=== PATIENT | female | born 1990 | race Caucasian/White ===

== ENCOUNTER 2017-09-04 05:58 | Day surgery (SDC) | payer OTHER ==
[2017-09-04] MEDS ORDERED: ACETAMINOPHEN 1000 MG/100 ML IVPB (07:00)
[2017-09-04] MEDS ORDERED: CEFAZOLIN 1 GM INJ (07:00)
[2017-09-04] MEDS ORDERED: DEXAMETHASONE 4 MG/ML 1 ML INJ (07:00)
[2017-09-04] MEDS ORDERED: METOCLOPRAMIDE 10 MG INJ (07:00)
[2017-09-04] MEDS ORDERED: MIDAZOLAM 1 MG/ML 2 ML INJ (07:56)
[2017-09-04] MEDS ORDERED: FENTAnyl 50 MCG/ML VIAL ×2 (07:56→08:46)
[2017-09-04] MEDS ORDERED: PROPOFOL 20 ML (07:56)
[2017-09-04] MEDS ORDERED: ONDANSETRON 4 MG INJ (08:03)
[2017-09-04] MEDS ORDERED: LIDOCAINE 2% (SDV) 5 ML INJ (08:04)
[2017-09-04] MEDS ORDERED: SUCCINYLCHOLINE CHLORIDE 100 MG/5 ML SYG IV (08:04)
[2017-09-04] MEDS ORDERED: ROCURONIUM 50 MG INJ (08:04)
[2017-09-04] MEDS ORDERED: SUGAMMADEX SODIUM 200 MG/2 ML VIAL IV ×2 (08:05→08:57)
[2017-09-04] MEDS: BUPIVACAINE 0.5%/EPI (SDV) 30 ML INJ (08:58)
[2017-09-04] MEDS ORDERED: LACTATED RINGER'S 1,000 ML IV (09:12)
[2017-09-04] MEDS ORDERED: HYDROmorphONE 1 MG/5 ML IV SYRINGE IV (09:30)
[2017-09-04] MEDS ORDERED: ONDANSETRON 4 MG INJ IV ×2 (09:30)
[2017-09-04] MEDS ORDERED: IBUPROFEN 600 MG TAB PO (09:30)
[2017-09-04] MEDS ORDERED: FENTAnyl 50 MCG/ML VIAL IV ×2 (09:30)
[2017-09-04] MEDS ORDERED: DIPHENHYDRAMINE 50 MG INJ IV (09:30)
[2017-09-04] MEDS ORDERED: MEPERIDINE 25 MG INJ IV (09:30)
[2017-09-04] MEDS ORDERED: morphine 2 MG INJ IV (09:30)
[2017-09-04] MEDS ORDERED: ACETAMINOPHEN 325 MG TAB PO (09:30)
[2017-09-04] MEDS ORDERED: KETOROLAC 30 MG INJ IV (09:30)
[2017-09-04] MEDS: HYDROmorphONE 1 MG/5 ML IV SYRINGE IV ×2 (09:50→09:59)
[2017-09-04] MEDS: OXYCODONE/ACETAMINOPHEN (5/325) TAB PO (10:04)
== END 2017-09-04 11:15 | disposition home or self-care (01) ==
LOC: SDS 05:58
DX: Z30.2 Encounter for sterilization (principal)
CPT/HCPCS: 58670

== ENCOUNTER 2017-10-12 19:01 | Emergency (ER) | payer OTHER | END 2017-10-12 21:43 | disposition home or self-care (01) | LOC: FTE 19:01 | DX: S39.012A Strain of muscle, fascia and tendon of lower back, initial encounter (principal); S16.1XXA Strain of muscle, fascia and tendon at neck level, initial encounter; V89.2XXA Person injured in unspecified motor-vehicle accident, traffic, initial encounter | CPT/HCPCS: 99283; Z7502 ==